=== PATIENT | female | born 1965 | race Native Hawaiian/Other Pacific Islander ===

== ENCOUNTER 2016-12-10 12:48 | Outpatient (CLI) | payer OTHER ==
[~2016-12-10 12:48] MED LIST: FURO20TA67 PO; GABA400C2 PO; INSU100P SC; INSUINJP SC; OXYC5TAB53 PO; TIZA4TAB5 PO
== END 2016-12-10 21:43 | disposition home or self-care (01) ==
LOC: US 12:48
DX: M79.604 Pain in right leg (principal); M79.605 Pain in left leg

== ENCOUNTER 2017-01-11 08:19 | Day surgery (SDC) | payer OTHER | END 2017-01-11 11:36 | disposition home or self-care (01) | LOC: OR 08:19 | PROC: 0DJD8ZZ Inspection of Lower Intestinal Tract, Via Natural or Artificial Opening Endoscopic (ICD-10-PCS; principal; 2017-01-11) | DX: K92.1 Melena (principal); K64.8 Other hemorrhoids; Z12.11 Encounter for screening for malignant neoplasm of colon | CPT/HCPCS: 94640; 94664; 94760; J2704 ==

== ENCOUNTER 2017-03-30 17:24 | Emergency (ER) | payer OTHER ==
[~2017-03-30] VITALS: Ht 172.7 cm; Wt 178.7 kg
[2017-03-30 19:15] VITALS: BP 165/86; TEMP 97.6
== END 2017-03-30 19:15 | disposition home or self-care (01) ==
LOC: ED 17:24
DX: M79.672 Pain in left foot (principal); M79.671 Pain in right foot
CPT/HCPCS: 99281

== ENCOUNTER 2018-02-06 11:12 | Outpatient (CLI) | payer OTHER | END 2018-02-06 21:32 | disposition home or self-care (01) | LOC: MAMMO 11:12 | DX: Z12.31 Encounter for screening mammogram for malignant neoplasm of breast (principal) ==

== ENCOUNTER 2018-02-14 09:18 | Day surgery (SDC) | payer OTHER ==
[~2018-02-14] VITALS: Ht 30.5 cm; Wt 0.5 kg
[2018-02-14 10:02] LABS: PLATELET COUNT 305 K/uL (152-353)
[2018-02-14 10:06] LABS: POTASSIUM 4.8 mmol/L (3.6-5.2)
== END 2018-02-14 11:45 | disposition home or self-care (01) ==
LOC: OR 09:18
PROVIDERS: Student in an Organized Health Care Education/Training Program
PROC: 0DB68ZZ Excision of Stomach, Via Natural or Artificial Opening Endoscopic (ICD-10-PCS; principal; 2018-02-14)
PROC: 0DB48ZZ Excision of Esophagogastric Junction, Via Natural or Artificial Opening Endoscopic (ICD-10-PCS; 2018-02-14)
DX: K29.50 Unspecified chronic gastritis without bleeding (principal); K44.9 Diaphragmatic hernia without obstruction or gangrene; K31.84 Gastroparesis; K21.0 Gastro-esophageal reflux disease with esophagitis; R10.84 Generalized abdominal pain; Z86.19 Personal history of other infectious and parasitic diseases
CPT/HCPCS: 36415; 80053; 85027; J2001; J2250; J2704; J3490

== ENCOUNTER 2018-03-14 18:39 | Outpatient (CLI) | payer OTHER | END 2018-03-14 20:28 | disposition home or self-care (01) | LOC: RAD 18:39 | DX: M25.512 Pain in left shoulder (principal) ==

== ENCOUNTER 2018-08-02 18:10 | Inpatient (IN) | payer OTHER ==
[~2018-08-02] VITALS: Ht 172.7 cm; Wt 192.8 kg
[2018-08-02 19:49] LABS: PLATELET COUNT 287 K/uL (152-353)
[2018-08-02 20:09] LABS: POTASSIUM 4.2 mmol/L (3.6-5.2); SODIUM 133 mmol/L (136-145)
[2018-08-02 22:23] VITALS: BP 146/45; TEMP 98.7; Ht 172.7 cm; Wt 192.8 kg
[2018-08-03 00:27] VITALS: BP 150/84; TEMP 99.1
[2018-08-03 04:00] VITALS: BP 141/75; TEMP 98.8
[2018-08-03 06:35] LABS: PLATELET COUNT 269 K/uL (152-353)
[2018-08-03 08:00] VITALS: BP 125/84; TEMP 98.3
[2018-08-03 12:00] VITALS: BP 151/82; TEMP 98.4
[2018-08-03] MEDS ORDERED: XARELTO20 MG PO (13:10)
[2018-08-03] MEDS ORDERED: GLIP10TA55 PO ×2 (13:15→13:16)
[2018-08-03] MEDS ORDERED: LISI20TA11 PO (13:17)
[2018-08-03] MEDS ORDERED: METF500T PO (13:18)
[2018-08-03] MEDS ORDERED: NORTRIPTYLIN25 MG PO (13:21)
[2018-08-03] MEDS ORDERED: NYST100016 TOP (13:23)
[2018-08-03] MEDS ORDERED: PANTOPRAZOLE 40MG TA PO (13:43)
[2018-08-03] MEDS ORDERED: DULOXETINE HCL30 MG PO (13:45)
[2018-08-03 16:00] VITALS: BP 129/64; TEMP 98.6
[2018-08-03 20:00] VITALS: BP 156/82; TEMP 98.5
[2018-08-04 04:00] VITALS: BP 104/55; TEMP 98.7
[2018-08-04 06:12] LABS: PLATELET COUNT 266 K/uL (152-353)
[2018-08-04 06:35] LABS: POTASSIUM 4.7 mmol/L (3.6-5.2)
[2018-08-04 08:00] VITALS: BP 101/73; TEMP 98.5
[2018-08-04 12:00] VITALS: BP 97/40; TEMP 98.7
[2018-08-04 16:00] VITALS: BP 98/60; TEMP 97.8
[2018-08-04 19:48] VITALS: BP 107/59; TEMP 98.2
[2018-08-04 23:47] VITALS: BP 107/65; TEMP 97.9
[2018-08-05 03:57] VITALS: BP 92/56; TEMP 98.3
[2018-08-05 06:10] LABS: PLATELET COUNT 263 K/uL (152-353)
[2018-08-05 06:47] LABS: POTASSIUM 5.1 mmol/L (3.6-5.2)
[2018-08-05 08:00] VITALS: BP 92/58; TEMP 97.8
[2018-08-05 11:06] LABS: POTASSIUM 4.7 mmol/L (3.6-5.2)
[2018-08-05 12:00] VITALS: BP 122/68; TEMP 97.8
[2018-08-05 16:00] VITALS: BP 141/61; TEMP 97.6
[2018-08-05 20:00] VITALS: BP 96/41; TEMP 97.8
[2018-08-06] VITALS (7 sets, daily range): BP systolic 81–101; BP diastolic 36–78; TEMP 97.5–98.8
[2018-08-06 07:50] LABS: PLATELET COUNT 290 K/uL (152-353)
[2018-08-06 08:00] LABS: POTASSIUM 5.5 mmol/L (3.6-5.2)
== END 2018-08-06 19:40 | disposition short-term general hospital (02) | DRG 602 ==
LOC: MED/SURG 18:10 → ICU 08-06 09:05
PROVIDERS: ADMIT Family Medicine
DX: L03.116 Cellulitis of left lower limb (principal); N17.0 Acute kidney failure with tubular necrosis; J96.10 Chronic respiratory failure, unspecified whether with hypoxia or hypercapnia; E66.01 Morbid (severe) obesity due to excess calories; I48.0 Paroxysmal atrial fibrillation; Z79.01 Long term (current) use of anticoagulants; B95.61 Methicillin susceptible Staphylococcus aureus infection as the cause of diseases classified elsewhere; E11.9 Type 2 diabetes mellitus without complications; I10 Essential (primary) hypertension; R39.2 Extrarenal uremia; K21.9 Gastro-esophageal reflux disease without esophagitis; G47.30 Sleep apnea, unspecified; E86.0 Dehydration
CPT/HCPCS: 36415; 80048; 80053; 80202; 81000; 82550; 82570; 83735; 83874; 83880; 84100; 84443; 84484; 84540; 85027; 85610; 87040; 87070; 87077; 87185; 87186; 87205; 94640; 94664; 94760; J1815; J1940; J2175; J2405; J2543; J2765; J3370; J3490; Q9963

== ENCOUNTER 2018-08-26 09:26 | Outpatient (CLI) | payer OTHER ==
[~2018-08-26 09:26] MED LIST changes: +DULOXETINE HCL30 MG PO; +GLIP10TA55 PO; +LISI20TA11 PO; +METF500T PO; +NORTRIPTYLIN25 MG PO; +NYST100016 TOP; +PANTOPRAZOLE 40MG TA PO; +XARELTO20 MG PO
== END 2018-08-26 09:55 | disposition short-term general hospital (02) ==
LOC: AMB 09:26
DX: R06.02 Shortness of breath (principal)
CPT/HCPCS: A0425; A0427

== ENCOUNTER 2019-07-05 15:06 | Outpatient (CLI) | payer OTHER | END 2019-07-05 23:58 | disposition home or self-care (01) | LOC: RAD 15:06 | DX: J06.9 Acute upper respiratory infection, unspecified (principal) ==

== ENCOUNTER 2019-08-15 13:29 | Outpatient (CLI) | payer OTHER | END 2019-08-15 20:13 | disposition home or self-care (01) | LOC: LAB 13:29 | DX: L03.115 Cellulitis of right lower limb (principal) | CPT/HCPCS: 87070; 87077; 87185; 87186; 87205 ==

== ENCOUNTER 2019-10-22 16:34 | Outpatient (CLI) | payer OTHER ==
[2019-10-22 17:38] LABS: PLATELET COUNT 322 K/uL (152-353)
[2019-10-22 18:18] LABS: POTASSIUM 4.5 mmol/L (3.6-5.2)
== END 2019-10-22 19:33 | disposition home or self-care (01) ==
LOC: LAB 16:34
PROVIDERS: Family Medicine
DX: I11.0 Hypertensive heart disease with heart failure (principal); I50.9 Heart failure, unspecified; G62.9 Polyneuropathy, unspecified; E11.40 Type 2 diabetes mellitus with diabetic neuropathy, unspecified
CPT/HCPCS: 80053; 80061; 82043; 82570; 82607; 83036; 83735; 84439; 84443; 84481; 85027

== ENCOUNTER 2019-12-31 11:13 | Outpatient (CLI) | payer OTHER | END 2019-12-31 11:23 | disposition short-term general hospital (02) | LOC: AMB 11:13 | DX: M79.662 Pain in left lower leg (principal); M79.661 Pain in right lower leg; R60.0 Localized edema | CPT/HCPCS: A0425; A0427 ==

== ENCOUNTER 2019-12-31 11:24 | Emergency (ER) | payer OTHER ==
[~2019-12-31] VITALS: Ht 172.7 cm; Wt 192.8 kg
[2019-12-31 11:24] VITALS: TEMP 97.7
[2019-12-31 12:10] LABS: PLATELET COUNT 313 K/uL (152-353)
[2019-12-31 15:30] VITALS: BP 158/74
== END 2019-12-31 15:45 | disposition short-term general hospital (02) ==
LOC: ED 11:24
PROVIDERS: Emergency Medicine
DX: L03.116 Cellulitis of left lower limb (principal); L03.115 Cellulitis of right lower limb
CPT/HCPCS: 80053; 83605; 83925; 85027; 87040; 87070; 87077; 87186; 87205; 96365; 96375; 99284; J2405; J3370

== ENCOUNTER 2020-10-24 17:23 | Outpatient (CLI) | payer OTHER | END 2020-10-24 19:33 | disposition home or self-care (01) | LOC: LAB 17:23 | PROVIDERS: ATTEND Internal Medicine | DX: Z79.01 Long term (current) use of anticoagulants (principal) | CPT/HCPCS: 85610 ==

== ENCOUNTER 2023-06-02 05:00 | Emergency (ER) | payer OTHER ==
[~2023-06-02] VITALS: Ht 172.7 cm; Wt 163.3 kg
[2023-06-02 05:36] LABS: PLATELET COUNT 589 K/uL (152-353)
[2023-06-02 05:39] LABS: POTASSIUM 4.3 mmol/L (3.6-5.2)
[2023-06-02 05:55] LABS: PARTIAL THROMBOPLASTIN TIME 29.9 SECONDS (23.9-36.7)
[2023-06-02 07:05] VITALS: BP 122/48; TEMP 98.2
== END 2023-06-02 09:55 | disposition home or self-care (01) ==
LOC: ED 05:00
PROVIDERS: Family Medicine
DX: R19.7 Diarrhea, unspecified (principal); R10.31 Right lower quadrant pain; D64.9 Anemia, unspecified; I50.9 Heart failure, unspecified; J44.9 Chronic obstructive pulmonary disease, unspecified; E88.81 Metabolic syndrome and other insulin resistance
CPT/HCPCS: 36415; 80053; 80307; 81002; 82150; 83880; 84484; 85027; 85379; 85610; 85730; 87015; 87040; 87045; 87324; 87328; 87329; 87449; 87899; 93005; 96374; 99284; J2405